=== PATIENT | female | born 1975 | race African-American/Black ===

== ENCOUNTER → 2016-12-23 | Outpatient (CLI) | payer BC | LOC: WI 09:23 | PROVIDERS: ATTEND Physician Assistant | DX: N63 Unspecified lump in breast (principal) | CPT/HCPCS: 76642; G0204; 77066 ==

== ENCOUNTER 2017-06-11 10:17 | Emergency (ER) | payer OTHER, BC ==
[2017-06-11] MEDS ORDERED: OXYCODONE-ACETAMINOPHEN 5-325 MG TABLET PO ONE (12:12)
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
[2017-06-11 14:13] VITALS: BP 122/77
== END 2017-06-11 14:10 | disposition home or self-care (01) ==
LOC: ER 10:17
DX: S16.1XXA Strain of muscle, fascia and tendon at neck level, initial encounter (principal); S39.012A Strain of muscle, fascia and tendon of lower back, initial encounter; S60.222A Contusion of left hand, initial encounter; M54.9 Dorsalgia, unspecified; M54.2 Cervicalgia; V89.2XXA Person injured in unspecified motor-vehicle accident, traffic, initial encounter
CPT/HCPCS: 72050; 72110; 99283